=== PATIENT | male | born 1990 | race Hispanic/Latino ===

== ENCOUNTER 2017-11-23 23:10 | Emergency (ER) | payer OTHER ==
[2017-11-24] MEDS ORDERED: LIDOCAINE 1% MPF 5 ML VIAL ONE (00:14)
--- NOTE | 2017-11-24 01:17 | EDPHYS ---
Physician Documentation [facility] Name: Kyle Benítez Age: 26 yrs Sex: Male : 1990 Arrival Date: 11/23/2017 Time: 23:11 Bed 15 Private MD: None, None ED Physician Solis Bautista HPI: 11/23 23:38 This 26 yrs old Male presents to ER via Ambulatory with complaints of jmm Laceration To Hand. 23:38 The patient has a laceration broken on glass while cleaning window. The laceration(s) jmm is(are) located on the dorsum of right hand. Onset: The symptoms/episode began/occurred acutely, just prior to arrival. Associated signs and symptoms: Pertinent negatives: loss of consciousness. This is a 26 year old male with no chronic medical conditions that presents to the ED with right hand laceration which he states was cut on glass. Patient denies other injury. . Historical: - Allergies: 23:13 No Known Allergies; fc - Home Meds: 23:13 None [Active]; fc - PMHx: 23:13 None; fc - PSHx: 23:13 None; fc - Immunization history:: Last tetanus immunization: up to date. - Social history:: Smoking status: Patient/guardian denies using tobacco. - Ebola Screening: : Patient negative for fever greater than or equal to 101.5 degrees Fahrenheit, and additional compatible Ebola Virus Disease symptoms Patient denies exposure to infectious person Patient denies travel to an Ebola-affected area in the 21 days before illness onset. ROS: 23:38 Constitutional: Negative for fever, chills, and weight loss, Cardiovascular: Negative jmm for chest pain, palpitations, and edema, Respiratory: Negative for shortness of breath, cough, wheezing, and pleuritic chest pain. 23:38 MS/extremity: Positive for laceration. 23:38 Skin: Positive for laceration(s). 23:38 All other systems are negative. Exam: 23:38 Head/Face: atraumatic. Chest/axilla: Normal chest wall appearance and motion. jmm Cardiovascular: Regular rate and rhythm. No edema appreciated Respiratory: Normal respirations, no respiratory distress appreciated 23:38 Constitutional: The patient appears in no acute distress, alert, awake. 23:38 Musculoskeletal/extremity: FROM appreciated to the right MCP, < 2 sec distal cap refill, NVI. 23:38 Skin: 2.5 cm laceration noted to the dorsum of the right hand. 23:38 Neuro: Orientation: is normal, Mentation: is normal, Memory: is normal. Vital Signs: 23:13 BP 133 / 83; Pulse 78; Resp 20; Temp 98.6(O); Pulse Ox 98% on R/A; Weight 77.11 kg (R); fc Height 5 ft. 3 in. (160.02 cm) (R); Pain 0/10; 11/24 01:34 BP 109 / 74; Pulse 63; Resp 18; Temp 98.0(O); Pulse Ox 98% on R/A; Pain 0/10; fc 11/23 23:13 Body Mass Index 30.11 (77.11 kg, 160.02 cm) fc Laceration: 01:16 Wound Repair of 2.5cm ( 1.0in ) subcutaneous laceration to dorsum of right hand. Distal jmm neuro/vascular/tendon intact. Anesthesia: Local anesthetic administered with 2 mls of 1% lidocaine. Wound prep: Simple cleansing with betadine by wa, Copious irrigation. Skin closed with 4 5-0 Prolene using simple sutures and sterile technique. Patient tolerated well. MDM: 11/23 23:35 Patient medically screened. [facility] 11/24 01:16 Data reviewed: vital signs, nurses notes, radiologic studies, plain films. Counseling: valery I had a detailed discussion with the patient and/or guardian regarding: the historical points, exam findings, and any diagnostic results supporting the discharge/admit diagnosis, the need for outpatient follow up, to return to the emergency department if symptoms worsen or persist or if there are any questions or concerns that arise at home. 11/23 23:13 Order name: Hand Right 3 View XRAY [id number] Administered Medications: 11/23 23:45 CANCELLED (pt states that he is up to date): Tetanus-Diphtheria Toxoid Adult 0.5 ml IM fc once 11/24 01:13 Drug: Lidocaine (1 %) 5 mg Route: Infiltration; lc1 01:33 Follow up: Response: No adverse reaction; No change in condition fc Disposition: 06:43 Co-signature as Attending Physician, Solis Bautista MD I agree with the assessment and adithya plan of care. Disposition: 11/24/17 01:17 Discharged to Home. Impression: Hand Laceration. - Condition is Stable. - Discharge Instructions: Sutured Wound Care. - Medication Reconciliation Form, Thank You Letter, Antibiotic Education, Prescription Opioid Use form. - Follow up: Private Physician; When: 7 - 10 days; Reason: Recheck today's complaints, Continuance of care, Staple/Suture removal, Re-evaluation by your physician. Signatures: Dispatcher [employer] EDSolis Amador MD MD cha Mickail, Joel, PA PA Kateryna Pendleton, RN RN Perla Rodriguez 1 Corrections: (The following items were deleted from the chart) 11/23 23:45 23:37 Tetanus-Diphtheria Toxoid Adult 0.5 ml IM once ordered. valery 11/24 01:37 01:17 11/24/2017 01:17 Discharged to Home. Impression: Hand Laceration. Condition is fc Stable. Forms are Medication Reconciliation Form, Thank You Letter, Antibiotic Education, Prescription Opioid Use. Follow up: Private Physician; When: 7 - 10 days; Reason: Recheck today's complaints, Continuance of care, Staple/Suture removal, Re-evaluation by your physician. valery
--- NOTE | 2017-11-24 01:17 | ER ---
Nurse's Notes [facility] Name: Kyle Benítez Age: 26 yrs Sex: Male : 1990 Arrival Date: 11/23/2017 Time: 23:11 Bed 15 Private MD: None, None Diagnosis: Hand Laceration Presentation: 11/23 23:11 Presenting complaint: Patient states: that at approx 1900 he was cleaning some window fc and cut the top of his right hand on a broken piece of glass. Bleeding controlled. Laceration approx 1 inch long. Transition of care: patient was not received from another setting of care. Complicating Factors: There are no complicating factors for this patient. Onset of symptoms was November 23, 2017 at 19:00. Risk Assessment: Do you want to hurt yourself or someone else? Patient reports no desire to harm self or others. Initial Sepsis Screen: Does the patient meet any 2 criteria? No. Patient's initial sepsis screen is negative. Does the patient have a suspected source of infection? No. Patient's initial sepsis screen is negative. Care prior to arrival: Bleeding of injury controlled. 23:11 Method Of Arrival: Ambulatory fc 23:11 Acuity: DAYDAY 4 fc Triage Assessment: 23:14 General: Appears comfortable, Behavior is calm, cooperative, appropriate for age. Pain: fc Denies pain. EENT: No deficits noted. Neuro: Level of Consciousness is awake, alert, obeys commands, Oriented to person, place, time, situation. Cardiovascular: No deficits noted. Respiratory: No deficits noted. GI: No deficits noted. : No deficits noted. Derm: Skin is pink, warm \T\ dry. Musculoskeletal: Circulation, motion, and sensation intact. Capillary refill < 3 seconds, Range of motion: intact in all extremities. Injury Description: Laceration sustained to dorsum of right hand is clean, 0.5 to 2.5 cm long, not bleeding, was sustained 4-6 hours ago. is bleeding a small amount a dressing was applied. Historical: - Allergies: 23:13 No Known Allergies; fc - Home Meds: 23:13 None [Active]; fc - PMHx: 23:13 None; fc - PSHx: 23:13 None; fc - Immunization history:: Last tetanus immunization: up to date. - Social history:: Smoking status: Patient/guardian denies using tobacco. - Ebola Screening: : Patient negative for fever greater than or equal to 101.5 degrees Fahrenheit, and additional compatible Ebola Virus Disease symptoms Patient denies exposure to infectious person Patient denies travel to an Ebola-affected area in the 21 days before illness onset. Screenin:14 Abuse screen: Denies threats or abuse. Nutritional screening: No deficits noted. Tuberculosis screening: No symptoms or risk factors identified. Fall Risk None identified. Assessment: 23:15 Reassessment: No changes from previously documented assessment. Patient and/or family fc updated on plan of care and expected duration. Pain level reassessed. Patient is alert, oriented x 3, equal unlabored respirations, skin warm/dry/pink. see triage assessment. Vital Signs: 23:13 BP 133 / 83; Pulse 78; Resp 20; Temp 98.6(O); Pulse Ox 98% on R/A; Weight 77.11 kg (R); fc Height 5 ft. 3 in. (160.02 cm) (R); Pain 0/10; 11/24 01:34 BP 109 / 74; Pulse 63; Resp 18; Temp 98.0(O); Pulse Ox 98% on R/A; Pain 0/10; fc 11/23 23:13 Body Mass Index 30.11 (77.11 kg, 160.02 cm) ED Course: 11/23 23:11 Patient arrived in ED. fc 23:11 None, None is Private Physician. fc 23:13 Triage completed. fc 23:13 Arm band placed on Patient placed in an exam room, on a stretcher. fc 23:14 Patient has correct armband on for positive identification. Bed in low position. Call light in reach. Pulse ox on. NIBP on. 23:14 Patient did not have IV access during this emergency room visit. fc 23:28 Marquez Renae PA is PHCP. jmm 23:28 Solis Bautista MD is Attending Physician. jmm 23:50 Perla Rodriguez is Primary Nurse. lc1 23:57 X-ray completed. Portable x-ray completed in exam room. Patient tolerated procedure kw well. 23:59 Hand Right 3 View XRAY In Process Unspecified. EDMS 11/24 00:38 Awaiting re-evaluation by ER provider. lc1 01:15 Assist provider with laceration repair on dorsum of right hand that was 2.5 cm. or less fc using sutures. Set up tray. Performed by Marquez OLIVA Dressed with 4X4s, Neosporin, Patient tolerated well. Administered Medications: 11/23 23:45 CANCELLED (pt states that he is up to date): Tetanus-Diphtheria Toxoid Adult 0.5 ml IM fc once 11/24 01:13 Drug: Lidocaine (1 %) 5 mg Route: Infiltration; [facility] 01:33 Follow up: Response: No adverse reaction; No change in condition fc Outcome: 01:17 Discharge ordered by MD. rasmussen 01:[facility] Condition: good 01:36 Discharge instructions given to patient, guards Instructed on discharge instructions, follow up and referral plans. wound care, Demonstrated understanding of instructions, follow-up care, wound care, Prescriptions given X none 01:37 Patient left the ED. fc Signatures: Dispatcher [employer] EDMS Marquez Renae PA PA jmm Chretien, Felicia, RN RN Perla Rodriguez [facility] Frannie Henao Corrections: (The following items were deleted from the chart) 00:38 00:38 Awaiting ED provider evaluation, 1 [facility] 01:36 00:30 Assist provider with laceration repair on dorsum of right hand that was 2.5 cm. fc or less using sutures. Set up tray. Performed by Marquez OLIVA Dressed with 4X4s, Neosporin, Patient tolerated well. fc
--- NOTE | 2017-11-24 08:11 | RAD REPORT ---
EXAM DESCRIPTION: RAD - Hand Right 3 View - 11/24/2017 12:01 am CLINICAL HISTORY: Hand pain, laceration COMPARISON: None. FINDINGS: No fracture is identified. There is no dislocation or periosteal reaction noted. Lacerati on dorsum of the hand is present with no foreign body. IMPRESSION: Dorsal soft tissue wound without foreign body. No acute bone finding.
== END 2017-11-24 01:37 | disposition home or self-care (01) ==
LOC: ER 23:10
PROC: 0JQJ0ZZ Repair Right Hand Subcutaneous Tissue and Fascia, Open Approach (ICD-10-PCS; principal; 2017-11-24)
DX: S61.411A Laceration without foreign body of right hand, initial encounter (principal); W25.XXXA Contact with sharp glass, initial encounter; Y93.E9 Activity, other interior property and clothing maintenance; Y92.9 Unspecified place or not applicable
CPT/HCPCS: 99284